=== PATIENT | female | born 1980 | race Asian ===

== ENCOUNTER 2025-02-17 06:21 | Day surgery (SDC) | payer BC, SELFPAY | END 2025-02-17 16:09 | disposition home or self-care (01) | LOC: GI 06:21 | PROVIDERS: ATTENDING PHYSICIAN Internal Medicine Gastroenterology; FAMILY PHYSICIAN Family Medicine | DX: Z12.11 Encounter for screening for malignant neoplasm of colon (principal); K62.4 Stenosis of anus and rectum; K62.6 Ulcer of anus and rectum; K63.89 Other specified diseases of intestine; K52.9 Noninfective gastroenteritis and colitis, unspecified | CPT/HCPCS: 45380; 88305 ==